=== PATIENT | male | born 1970 | race Caucasian/White ===

== ENCOUNTER 2017-09-02 20:01 | Emergency (ER) | payer BC ==
--- NOTE | 2017-09-02 20:21 | Emergency Department Record ---
History of Present Illness - General Chief Complaint: Shortness of breath Stated Complaint: NUMBNESS IN FACE AND IZZY Time Seen by Provider: 09/02/17 20:15 Source: Patient Mode of Arrival: Ambulatory Limitations: No limitations - History of Present Illness Initial Comments: 47 yo male presents to ED for evaluation of symptoms of IZZY and "all over numbness". Patient reports that he was taking a nap on the couch when he awoke suddenly with difficulty in breathing, felt numb all over the body. Patient denies focal weakness, chest pain or discomfort, or recent illness symptoms. Patient reports that he just feels "out of it". Patient denies health problems other than HTN. MD Complaint: Shortness of breath Onset/Timin -: Minutes(s) Consistency: Constant Improves With: Nothing Worsens With: Nothing Associated Symptoms: Denies other symptoms Treatments Prior to Arrival: None - Related Data Home Oxygen Therapy: No Home Oxygen Amount: CPAP Allergies Allergy/AdvReac Type Severity Reaction Status Date / Time morphine Allergy Intermediate RASH Verified 09/02/17 20:05 Travel Screening - Travel/Exposure Within Last 30 Days Have you traveled within the last 30 days?: No - Travel Symptoms Symptom Screening: None Review of Systems Constitutional: Denies: Chills, Fever, Malaise, Night sweats Eyes: Denies: Eye discharge, Eye pain ENT: Denies: Congestion, Ear pain, Epistaxis Respiratory: Reports: Dyspnea. Denies: Cough Cardiovascular: Denies: Chest pain, Edema Endocrine: Denies: Fatigue, Heat or cold intolerance Gastrointestinal: Denies: Abdominal pain, Nausea, Vomiting Genitourinary: Denies: Incontinence, Retention Musculoskeletal: Denies: Arthralgia, Back pain Skin: Denies: Bruising, Change in color Neurological: Reports: Numbness. Denies: Abnormal gait, Confusion, Headache, Seizure Psychiatric: Denies: Anxiety Hematological/Lymphatic: Denies: Anemia, Blood Clots Past Medical History - SOCIAL HISTORY Smoking Status: Never smoker - RESPIRATORY Hx Respiratory Disorders: Yes Hx Sleep Apnea: Yes Hx of CPAP: Yes - CARDIOVASCULAR Hx Cardio Disorders: Yes Hx Hypertension: Yes - NEURO Hx Neuro Disorders: No - GI Hx GI Disorders: No - Hx Genitourinary Disorders: No - ENDOCRINE Hx Endocrine Disorders: No - MUSCULOSKELETAL Hx Musculoskeletal Disorders: No - PSYCH Hx Psych Problems: No - HEMATOLOGY/ONCOLOGY Hx Hematology/Oncology Disorders: No Family Medical History Any Significant Family History?: Yes Hx Diabetes: Grandparents Hx Heart Disease: Grandparents Hx HTN: Mother, Grandparents Physical Exam - General General Appearance: Alert, Oriented x3, Cooperative, Moderate distress, Other ( poor eye contact on examination, unable to clarify his symptoms other than HPI) Limitations: No limitations - Head Head exam: Atraumatic, Normocephalic, Normal inspection Head exam detail: negative: Abrasion, Contusion, Garcia's sign, General tenderness, Hematoma, Laceration - Eye Eye exam: Normal appearance. negative: Conjunctival injection, Periorbital swelling, Periorbital tenderness, Scleral icterus - ENT Ear exam: negative: Auricular hematoma, Auricular trauma Nasal Exam: negative: Active bleeding, Discharge, Dried blood, Foreign body Mouth exam: negative: Drooling, Laceration, Muffled voice, Tongue elevation - Neck Neck exam: Normal inspection. negative: Meningismus, Tenderness - Respiratory Respiratory exam: Normal lung sounds bilaterally. negative: Rales, Respiratory distress, Rhonchi, Stridor - Cardiovascular Cardiovascular Exam: Regular rate, Normal rhythm, Normal heart sounds - GI/Abdominal GI/Abdominal exam: Soft. negative: Rebound, Rigid, Tenderness - Rectal Rectal exam: Deferred - exam: Deferred - Extremities Extremities exam: negative: Pedal edema, Tenderness - Back Back exam: Denies: CVA tenderness (R), CVA tenderness (L) - Neurological Neurological exam: Alert, CN II-XII intact, Oriented X3. negative: Motor sensory deficit - Psychiatric Psychiatric exam: Flat affect, Normal mood - Skin Skin exam: Normal color. negative: Abrasion Type of lesion: negative: abrasion Course Vital Signs 09/02/17 20:07 Pulse Rate 74 Respiratory 16 Rate Blood Pressure 141/103 Pulse Ox 94 L - Reevaluation(s) Reevaluation #1: 09/02/17 20:20 EKG: NSR 73 Normal axis, normal intervals T wave inversion III only. Patient seen and examined, no respiratory distress noted on examination, no focal weakness to suggest an acute CVA. Will obtain laboratory studies, CXR and CT brain and reassess. Reevaluation #2: 09/02/17 21:03 CT Brain: No acute process, probable subcutaneous epithelial cyst. CXR: Low lung volumes, nothing acute. Patient reassessed and updated on all results thus far, reports that his symptoms are improving. Will continue to monitor pending UA. Reevaluation #3: 09/02/17 22:03 UA and UDS are grossly unremarkable for an acute process. Patient ambulated to the bathroom with steady gait, no clinical evidence for CVA or other acute metabolic process. Patient appears stable for discharge with instructions to return to ED if his symptoms worsen. Medical Decision Making - Lab Data Result diagrams: 09/02/17 20:26 09/02/17 20:26 Disposition Disposition: Discharge Clinical Impression: Dyspnea Qualifiers: Dyspnea type: unspecified Qualified Code(s): R06.00 - Dyspnea, unspecified Disposition: Home, Self-Care Condition: (2) Stable Instructions: Dyspnea (ED) Additional Instructions: Return to ED if your symptoms worsen or if you have any concerns. Follow-up with your family doctor in 3-5 days as directed. Forms: Patient Portal Access Time of Disposition: 22:05 Quality - Quality Measures Quality Measures: N/A - Blood Pressure Screening Does Patient Have Any of the Following: No Blood Pressure Classification: Hypertensive Reading Systolic Measurement: 141 Diastolic Measurement: 103 Screening for High Blood Pressure: < First Hypertensive BP, F/U Documented > [ G8950] First Hypertensive Follow-up Interventions: Referral to alternative/primary care provider.
[2017-09-02 20:37] LABS: BASO % 0.2 % (0-6); GRAN % 67.8 % (47-80); HEMOGLOBIN 15.5 gm/dl (14.0-18.0); LYMPH % 20.9 % (16-45); MEAN CELL VOLUME 82.7 fl (81-97); MEAN CORPUSCULAR HEMOGLOBIN 28.5 pg (27-33); MEAN CORPUSCULAR HGB CONC 34.4 g/dl (32-36); MEAN PLATELET VOLUME 9.8 fl (7.4-10.4); MONO % 8.1 % (0-9); PLATELET COUNT 289 K/uL (130-400); RED BLOOD COUNT 5.44 M/uL (4.40-5.70); RED CELL DISTRIBUTION WIDTH 13.1 % (11.5-14.5)
[2017-09-02 20:48] LABS: BLOOD UREA NITROGEN 24 mg/dL (6-20); CREATININE 0.8 mg/dL (0.7-1.2); EST GLOMERULAR FILTRATION RATE > 60 mL/min
[2017-09-02 20:49] LABS: TOTAL PROTEIN 7.3 g/dL (6.6-8.7)
[2017-09-02 20:51] LABS: GLUCOSE,RANDOM 95 mg/dL (74-109)
[2017-09-02 20:54] LABS: ALB/GLOB RATIO 1.6 (1.1-1.8); ALBUMIN 4.5 g/dL (4.0-5.0); ALKALINE PHOSPHATASE 74 U/L (40-129); ALT/SGPT 24 U/L (<41); AST/SGOT 21 U/L (10.0-50.0)
[2017-09-02 21:57] LABS: URINE APPEARANCE CLEAR; URINE BILIRUBIN NEGATIVE (NEGATIVE); URINE BLOOD NEGATIVE (NEGATIVE); URINE COLOR YELLOW; URINE GLUCOSE (UA) NEGATIVE (NEGATIVE); URINE KETONE NEGATIVE (NEGATIVE); URINE LEUKOCYTE ESTERASE NEGATIVE (NEGATIVE); URINE NITRITE NEGATIVE (NEGATIVE); URINE PROTEIN NEGATIVE (NEGATIVE); URINE UROBILINOGEN 0.2 E.U./dL (0.20 - 1.00)
[2017-09-02 22:00] LABS: AMPHETAMINE SCREEN URINE NOT DETECTED; BARBITURATE SCREEN URINE NOT DETECTED; BENZODIAZEPINE SCREEN URINE NOT DETECTED; COCAINE SCREEN URINE NOT DETECTED; METHADONE SCREEN URINE NOT DETECTED; METHAMPHETAMINE SCREEN NOT DETECTED; OPIATE SCREEN URINE NOT DETECTED; OXYCODONE SCREEN URINE NOT DETECTED; PHENCYCLIDINE SCREEN URINE NOT DETECTED; PROPOXYPHENE SCREEN URINE NOT DETECTED; THC SCREEN URINE NOT DETECTED; TRICYCLIC ANTIDEPRESSANT SCRN NOT DETECTED
--- NOTE | 2017-09-03 20:40 | CT SCAN REPORT ---
EXAM: CT SCAN HEAD WO CONTRAST HISTORY: DIFFUSE PARESTHESIA. DIFFICULTY BREATHING. COMPARISON: None. TECHNIQUE: Contiguous axial images from the cerebral convexities to the foramen magnum were obtained without contrast. FINDINGS: Brain volume is normal. No acute intracranial hemorrhage, mass effect , or midline shift. No CT evidence of acute infarct. Ventricles, basal cisterns , and sulci are within normal limits. Subcutaneous fluid collection posterior upper right cervical region measuring 19 mm. Osseous structures and paranasal sinuses are unremarkable. Subcutaneous nodule of the right maxilla measuring 6 mm, which could relate to a soft tissue granuloma. IMPRESSION: 1. NORMAL HEAD CT. 2. PROBABLE EPITHELIAL CYST SUBCUTANEOUS TISSUES OF THE UPPER RIGHT CERVICAL REGION POSTERIORLY. JOB NUMBER: [id number] MTDD
--- NOTE | 2017-09-03 20:42 | RADIOLOGY REPORT ---
EXAM: CHEST 2 VIEWS HISTORY: ACUTE DIFFICULTY BREATHING. COMPARISON: None. TECHNIQUE: Two-view chest. FINDINGS: Low lung volumes. Lungs are clear. Cardiac silhouette and diaphragm are unremarkable. Possible healed fracture mid left clavicle. IMPRESSION: LOW LUNG VOLUMES. NO ACUTE PROCESS. JOB NUMBER: [id number] MTDD
== END 2017-09-02 22:18 | disposition home or self-care (01) ==
LOC: ER 20:01
DX: R06.02 Shortness of breath (principal); R20.2 Paresthesia of skin; I10 Essential (primary) hypertension
CPT/HCPCS: 70450; 71020; 80053; 80305; 81003; 82550; 82553; 84484; 85025; 93005; 93010; 99284

== ENCOUNTER 2018-03-12 19:23 | Emergency (ER) | payer BC ==
--- NOTE | 2018-03-12 19:44 | Emergency Department Record ---
History of Present Illness - General Chief Complaint: Numbness Stated Complaint: NUMBNESS ON LEFT SIDE Time Seen by Provider: 03/12/18 19:42 Source: Patient Mode of Arrival: Ambulatory Limitations: No limitations - History of Present Illness Initial Comments: 48 yo male presents to ED for evaluation of intermittent numbness symptoms to the left upper extremity for the past 1 month. Patient denies chest pain symptoms, neck pain, or weakness to the left hand/arm. Patient denies change in vision or any focal weakness on examination. Patient denies health problems at his baseline. Onset/Timin -: Month(s) Location: Left arm History of same: Yes Place: Home Severity: Mild Quality: Numb, Tingling On Anticoagulants: No Associated Symptoms: Denies other symptoms Treatments Prior to Arrival: None - [place] Coma Scale Eye Response: (4) Open spontaneously Motor Response: (6) Obeys commands Verbal Response: (5) Oriented [place] Total: 15 - Symptoms of Stroke Onset of Symptoms Date: 03/12/18 Onset of Symptoms Time: 19:15 Symptom Onset Unknown: No - Related Data Allergies/Adverse Reactions: Allergies Allergy/AdvReac Type Severity Reaction Status Date / Time morphine Allergy Intermediate RASH Verified 09/02/17 20:05 Travel Screening - Travel/Exposure Within Last 30 Days Have you traveled within the last 30 days?: No - Travel/Exposure Within Last Year Have you traveled outside the [place] in the last year?: No - Additonal Travel Details Have you been exposed to anyone with a communicable illness?: No - Travel Symptoms Symptom Screening: None Review of Systems Constitutional: Denies: Chills, Fever, Malaise, Night sweats Eyes: Denies: Eye discharge, Eye pain ENT: Denies: Congestion, Ear pain, Epistaxis Respiratory: Denies: Cough, Dyspnea Cardiovascular: Denies: Chest pain, Dyspnea on exertion Endocrine: Denies: Fatigue, Heat or cold intolerance Gastrointestinal: Denies: Abdominal pain, Nausea, Vomiting Genitourinary: Denies: Incontinence, Retention Musculoskeletal: Denies: Arthralgia, Back pain, Gout, Joint swelling Skin: Denies: Bruising, Change in color Neurological: Reports: Numbness. Denies: Abnormal gait, Confusion, Headache, Seizure Psychiatric: Denies: Anxiety Hematological/Lymphatic: Denies: Anemia, Blood Clots Past Medical History - SOCIAL HISTORY Smoking Status: Never smoker Alcohol Use: Occasional Drug Use: None - RESPIRATORY Hx Respiratory Disorders: Yes Hx Sleep Apnea: Yes Hx of CPAP: Yes - CARDIOVASCULAR Hx Cardio Disorders: Yes Hx Hypertension: Yes - NEURO Hx Neuro Disorders: No - GI Hx GI Disorders: No - Hx Genitourinary Disorders: No - ENDOCRINE Hx Endocrine Disorders: No - MUSCULOSKELETAL Hx Musculoskeletal Disorders: No - PSYCH Hx Psych Problems: No - HEMATOLOGY/ONCOLOGY Hx Hematology/Oncology Disorders: No Family Medical History Any Significant Family History?: No Hx Diabetes: Grandparents Hx Heart Disease: Grandparents Hx HTN: Mother, Grandparents Physical Exam - General General Appearance: Alert, Oriented x3, Cooperative, No acute distress Limitations: No limitations - Head Head exam: Atraumatic, Normocephalic, Normal inspection Head exam detail: negative: Abrasion, Contusion, Garcia's sign, General tenderness, Hematoma, Laceration - Eye Eye exam: Normal appearance. negative: Conjunctival injection, Periorbital swelling, Periorbital tenderness, Scleral icterus - ENT Ear exam: negative: Auricular hematoma, Auricular trauma Nasal Exam: negative: Active bleeding, Discharge, Dried blood, Foreign body Mouth exam: negative: Drooling, Laceration, Muffled voice, Tongue elevation - Neck Neck exam: Normal inspection. negative: Meningismus, Tenderness - Respiratory Respiratory exam: Normal lung sounds bilaterally. negative: Rales, Respiratory distress, Rhonchi, Stridor - Cardiovascular Cardiovascular Exam: Regular rate, Normal rhythm, Normal heart sounds - GI/Abdominal GI/Abdominal exam: Soft. negative: Rebound, Rigid, Tenderness - Rectal Rectal exam: Deferred - exam: Deferred - Extremities Extremities exam: Normal inspection. negative: Calf tenderness, Pedal edema, Tenderness - Back Back exam: Denies: CVA tenderness (R), CVA tenderness (L) - Neurological Neurological exam: Alert, CN II-XII intact, Normal gait, Oriented X3, Other ( [employer] strength 5/5 and symmetric bilaterally, EOM intact, no focal weakness on examination to suggest CVA) - Psychiatric Psychiatric exam: Normal affect, Normal mood - Skin Skin exam: Normal color. negative: Abrasion Type of lesion: negative: abrasion Course Vital Signs 03/12/18 19:30 Temperature 98.7 F Pulse Rate 96 H Respiratory 20 Rate Blood Pressure 137/100 Pulse Ox 94 L - Reevaluation(s) Reevaluation #1: 03/12/18 19:47 Patient was seen and examined. Denies chest pain or focal weakness, no evidence for CVA on examination. Patient denies neck pain or pain radiating down the arm. Patient's symptoms appear c/w possible pinched nerve from the cervical region, recommended outpatient MRI and follow-up through his PCP in 3-5 days. Patient is well appearing and stable for discharge at this time. Disposition Disposition: Discharge Clinical Impression: Numbness and tingling in left arm Disposition: Home, Self-Care Condition: (2) Stable Instructions: Paresthesia (ED) Additional Instructions: Return to ED if your symptoms worsen or if you have any concerns. Follow-up with your family doctor in 3-5 days as directed for possible MRI of the cervical spine. Forms: Patient Portal Access Time of Disposition: 19:43 Quality - Quality Measures Quality Measures: N/A - Blood Pressure Screening Does Patient Have Any of the Following: No Blood Pressure Classification: Hypertensive Reading Systolic Measurement: 137 Diastolic Measurement: 100 Screening for High Blood Pressure: < First Hypertensive BP, F/U Documented > [ G8950] First Hypertensive Follow-up Interventions: Referral to alternative/primary care provider.
== END 2018-03-12 19:49 | disposition home or self-care (01) ==
LOC: ER 19:23
DX: R20.0 Anesthesia of skin (principal); R20.2 Paresthesia of skin; I10 Essential (primary) hypertension
CPT/HCPCS: 99282